=== PATIENT | male | born 1945 | race Caucasian/White ===

== ENCOUNTER 2018-06-23 12:12 | Outpatient (CLI) | payer MEDICARE ==
--- NOTE | 2018-06-23 15:53 | NM ---
EXAM: Nuclear medicine hepatobiliary scan: HISTORY: Generalized abdominal pain, gastroesophageal reflux disease, right upper quadrant pain COMPARISON: None. RADIOPHARMACEUTICAL: 5.2 mCi technetium 99m labeled mebrofenin intravenously. FINDINGS: There is normal opacification of the liver with excretion into the gallbladder and into the small bow el by 60 minutes. Following administration of: 8 ounces of ensure orally, gallbladder ejection fraction %, with in normal limits.. IMPRESSION: Unremarkable nuclear medicine hepatic biliary scan. Normal ejection fraction.
== END 2018-06-23 12:13 | disposition home or self-care (01) ==
LOC: NM 12:12
PROVIDERS: ATTEND Internal Medicine Gastroenterology
DX: K21.9 Gastro-esophageal reflux disease without esophagitis (principal); R10.84 Generalized abdominal pain
CPT/HCPCS: 78227; A9537

== ENCOUNTER 2021-11-27 11:45 | Emergency (ER) | payer MEDICARE, SELFPAY ==
[~2021-11-27 11:45] MED LIST: Iopamidol-370 76% 500 ML 1 ML ONE
[2021-11-27 12:28] LABS: Hemoglobin 15.8 g/dL (14.0-18.0); Mean Corpuscular HGB CONC 33.7 g/dL (32.0-36.0); Mean Corpuscular Hemoglobin 30.1 pg (27.0-31.0); Mean Corpuscular Volume 89.2 fL (78.0-98.0); Mean Platelet Volume 6.8 fL (7.4-10.4); Platelet Count 224 thou/uL (130-400); RBC Distribution Width 12.6 % (11.5-14.5); Red Blood Cell (RBC) Count 5.25 mill/uL (4.70-6.10); White Blood Cell (WBC) Count 10.6 thou/uL (4.8-10.8)
[2021-11-27 12:51] LABS: ALT (SGPT) 21 U/L (8-55); AST (SGOT) 22 U/L (5-34); Albumin 4.6 g/dL (3.4-4.8); Alkaline Phosphatase 84 U/L (40-110); Anion Gap 14 mmol/L (10-20); BUN (Urea Nitrogen) 15 mg/dL (8.4-25.7); Bilirubin, Total 0.8 mg/dL (0.2-1.2); Calc. Creatinine Clearance 0 mL/min (70-130); Calcium 10.8 mg/dL (7.8-10.44); Carbon Dioxide 25 mmol/L (23-31); Chloride 106 mmol/L (98-107); Estimated GFR 64; Globulin 2.9 g/dL (2.4-3.5); Glucose 98 mg/dL (83-110); Protein, Total 7.5 g/dL (5.8-8.1); Sodium 141 mmol/L (136-145)
[2021-11-27 12:53] LABS: Eosinophils 2 % (0-10); Lymphocytes 56 % (21-51); MDiff Complete? YES; Monocytes 4 % (0-10); Neutrophil 36 % (42-75); Platelet Morphology Comment Appears Adequate; RBC Morphology Normal; Reactive Lymphocytes 2 % (0-10)
[2021-11-27 13:19] LABS: CK (CPK) 219 U/L (30-200); Lipase 46 U/L (8-78)
[2021-11-27] MEDS ORDERED: Lidocaine Viscous Sol 2% 15 ml UD Cup ONE (15:35)
[2021-11-27] MEDS ORDERED: Mag-Al 1200 mg/1200 mg/30 ML UDCUP ONE (15:35)
== END 2021-11-27 15:40 | disposition home or self-care (01) ==
LOC: ERS 11:45
DX: R07.89 Other chest pain (principal); E78.00 Pure hypercholesterolemia, unspecified
CPT/HCPCS: 71045; 71275; 76705; 80053; 82550; 83690; 84484; 85025; 93005; Q9967

== ENCOUNTER 2021-12-29 08:23 | Outpatient (CLI) | payer MEDICARE | END 2021-12-29 08:24 | disposition home or self-care (01) | LOC: RAD 08:23 | PROVIDERS: ATTEND Internal Medicine Critical Care Medicine | DX: R06.00 Dyspnea, unspecified (principal) | CPT/HCPCS: 71046 ==

== ENCOUNTER 2022-01-18 08:07 | Outpatient (CLI) | payer MEDICARE | END 2022-01-18 08:08 | disposition home or self-care (01) | LOC: NM 08:07 | PROVIDERS: ATTEND Internal Medicine Critical Care Medicine | DX: R07.89 Other chest pain (principal) | CPT/HCPCS: 78306; A9503 ==

== ENCOUNTER 2022-03-24 15:54 | Inpatient (IN) | payer MEDICARE ==
[2022-03-24] MEDS ORDERED: Boostrix 0.5 ML (Tdap) VIAL (>/=7 yrs of age) ONE (16:24)
[2022-03-24] MEDS ORDERED: Fentanyl 100 MCG/2 ML VIAL ONE ×2 (16:24→22:07)
[2022-03-24] MEDS ORDERED: Morphine 4 MG/ML VIAL ONE (17:23)
[2022-03-24] MEDS ORDERED: CEFAZOLIN 1 GM VIAL ONE (17:23)
[2022-03-24] MEDS ORDERED: Ondansetron PF 4 MG/2 ML Vial ONE ×2 (17:23→20:06)
[2022-03-24] MEDS ORDERED: Lidocaine 1% PF 5 ML VIAL ONE ×2 (18:25→20:42)
[2022-03-24] MEDS ORDERED: Bupivacaine 0.25% 10 ML VIAL ONE (18:25)
[2022-03-24] MEDS ORDERED: Piperacillin/Tazobactam 4.5 GM VIAL ONE (18:55)
[2022-03-24] MEDS ORDERED: Ketorolac Tromethamine 30 MG/ML VIAL ONE (18:55)
[2022-03-24] MEDS ORDERED: Ketamine 50 MG/ML (10ML VIAL) ONE (19:02)
[2022-03-24] MEDS ORDERED: Famotidine/PF 20 mg/2ml Vial ONE (19:44)
[2022-03-24] MEDS ORDERED: Morphine 2 MG/ML VIAL SLOW IVP PRN (20:14)
[2022-03-24] MEDS ORDERED: TETANUS, DIPHTHERIA TOX,ADULT (TDVAX) 0.5 ML VIAL IM ONE (20:14)
[2022-03-24] MEDS ORDERED: Dextrose 50% Abboject 50 ML SYRINGE SLOW IVP PRN (20:14)
[2022-03-24] MEDS ORDERED: hydrALAZINE 20 MG/ML VIAL SLOW IVP PRN (20:14)
[2022-03-24] MEDS ORDERED: Ipratropium/Albuterol 3 ML NEB NEB PRN (20:14)
[2022-03-24] MEDS ORDERED: Ondansetron ODT 4 MG TAB PO PRN (20:14)
[2022-03-24] MEDS ORDERED: Dextrose 5% in Water 1,000 ML IV PRN (20:14)
[2022-03-24] MEDS ORDERED: Morphine 4 MG/ML VIAL SLOW IVP PRN (20:14)
[2022-03-24] MEDS ORDERED: Sodium Chloride 0.9% 1,000 ML IV SCH (20:15)
[2022-03-24] MEDS ORDERED: traMADol HCl 50 MG TAB PO PRN (20:16)
[2022-03-24] MEDS ORDERED: Cyclobenzaprine 10 MG TAB PO PRN (20:16)
[2022-03-24 20:30] LABS: Mean Corpuscular HGB CONC 34.4 g/dL (32.0-36.0); Mean Corpuscular Hemoglobin 30.2 pg (27.0-31.0); Mean Corpuscular Volume 87.8 fl (78.0-98.0); Mean Platelet Volume 7.2 fL (7.4-10.4); Platelet Count 189 10x3/uL (130-400); RBC Distribution Width 12.1 % (11.5-14.5); Red Blood Cell (RBC) Count 4.96 mill/uL (4.70-6.10); White Blood Cell (WBC) Count 9.8 10x3/uL (4.8-10.8)
[2022-03-24 20:38] LABS: Prothrombin Time 13.2 sec (12.0-14.7)
[2022-03-24 20:39] LABS: SARS-CoV-2 NAA Rapid Test Not Detected (NotDetected)
[2022-03-24] MEDS ORDERED: ePHEDrine 50 MG/ML VIAL ONE (20:42)
[2022-03-24] MEDS ORDERED: Succinylcholine Chloride 100 MG/5 ML SYRINGE FS ONE (20:42)
[2022-03-24 20:46] LABS: ALT (SGPT) 19 U/L (8-55); AST (SGOT) 22 U/L (5-34); Albumin 4.2 g/dL (3.4-4.8); Alkaline Phosphatase 68 U/L (40-110); Anion Gap 13 mmol/L (10-20); BUN (Urea Nitrogen) 17 mg/dL (8.4-25.7); Bilirubin, Total 0.5 mg/dL (0.2-1.2); Calc. Creatinine Clearance 0 mL/min (70-130); Calcium 9.9 mg/dL (7.8-10.44); Carbon Dioxide 22 mmol/L (23-31); Chloride 108 mmol/L (98-107); Estimated GFR 75; Globulin 2.6 g/dL (2.4-3.5); Glucose 129 mg/dL (83-110); Potassium 3.9 mmol/L (3.5-5.1); Protein, Total 6.8 g/dL (5.8-8.1); Sodium 139 mmol/L (136-145)
[2022-03-24 20:49] LABS: Band 1 % (5-11); Lymphocytes 37 % (21-51); MDiff Complete? YES; Neutrophil 55 % (42-75); Platelet Morphology Comment Appears Adequate; RBC Morphology Normal; Reactive Lymphocytes 7 % (0-10)
[2022-03-24] MEDS: Senokot S 8.6-50 MG TAB PO SCH (21:00)
[2022-03-24] MEDS: Famotidine 20 MG TAB PO SCH (21:00)
[2022-03-24] MEDS ORDERED: Bacitracin Zinc Ointment 30 gm TUBE ONE (21:23)
[2022-03-24] MEDS ORDERED: Promethazine HCl 25 MG/ML VIAL IM PRN (21:40)
[2022-03-24] MEDS ORDERED: Ondansetron HCl/PF 4 MG/2 ML Vial IVP PRN (21:40)
[2022-03-24] MEDS ORDERED: Ibuprofen 200 MG TAB PO PRN (21:44)
[2022-03-24] MEDS: Gabapentin 100 MG CAP PO SCH (22:00)
[2022-03-25] MEDS: CEFAZOLIN 2 GM in Sodium Chloride 0.9% 100 ML IVPB SCH ×2 (00:05→07:56)
[2022-03-25] MEDS: Ondansetron PF 4 MG/2 ML Vial IVP PRN ×2 (00:06→09:27)
[2022-03-25] MEDS: Acetaminophen 325 MG TAB PO SCH ×3 (00:26→13:06)
[2022-03-25 03:48] VITALS: BMI 27.6
[2022-03-25] MEDS: traMADol HCl 50 MG TAB PO SCH ×2 (03:50→07:56)
[2022-03-25] MEDS: Gabapentin 100 MG CAP PO SCH (05:15)
[2022-03-25 06:01] LABS: #Basophils 0.1 thou/uL (0.0-0.2); #Eosinphils 0.1 thou/uL (0.0-0.7); #Lymphocytes 3.6 thou/uL (1.20-3.40); #Monocytes 0.7 thou/uL (0.11-0.59); %Basophils 0.5 % (0.0-1.0); %Eosinophils 0.6 % (0.0-10.0); %Lymphocytes 34.9 % (21.0-51.0); %Monocytes 6.6 % (0.0-10.0); %Neutrophils 57.4 % (42.0-75.0); Hemoglobin 13.3 g/dL (14.0-18.0); Mean Corpuscular HGB CONC 33.7 g/dL (32.0-36.0); Mean Corpuscular Hemoglobin 30.2 pg (27.0-31.0); Mean Corpuscular Volume 89.6 fl (78.0-98.0); Mean Platelet Volume 7.2 fL (7.4-10.4); Platelet Count 166 10x3/uL (130-400); RBC Distribution Width 12.2 % (11.5-14.5); White Blood Cell (WBC) Count 10.4 10x3/uL (4.8-10.8)
[2022-03-25 06:25] LABS: Anion Gap 10 mmol/L (10-20); BUN (Urea Nitrogen) 16 mg/dL (8.4-25.7); Calc. Creatinine Clearance 90 mL/min (70-130); Calcium 9.1 mg/dL (7.8-10.44); Carbon Dioxide 25 mmol/L (23-31); Chloride 108 mmol/L (98-107); Estimated GFR 87; Glucose 101 mg/dL (83-110); Magnesium 2.1 mg/dL (1.6-2.6); Potassium 4.3 mmol/L (3.5-5.1); Sodium 139 mmol/L (136-145)
[2022-03-25] MEDS ORDERED: PHOS-NAK 1 PKT PACK PO SCH (07:45)
[2022-03-25] MEDS: Famotidine 20 MG TAB PO SCH (07:56)
[2022-03-25] MEDS: Senokot S 8.6-50 MG TAB PO SCH (07:57)
[2022-03-25] MEDS ORDERED: Polyethylene Glycol 3350 17 GM Packet PO SCH (09:00)
[2022-03-25] MEDS ORDERED: Cephalexin 250 MG CAP PO SCH ×2 (12:00)
[2022-03-25 12:27] VITALS: BP 122/61; TEMP 98.1
[2022-03-25] MEDS ORDERED: Gabapentin 300 MG CAP PO SCH (14:00)
== END 2022-03-25 13:57 | disposition home or self-care (01) | DRG 501 ==
LOC: ERS 15:54 → SURG A 19:37
PROVIDERS: ADMIT Surgery; ATTEND Surgery
PROC: 0LQV0ZZ Repair Right Foot Tendon, Open Approach (ICD-10-PCS; principal; 2022-03-24)
PROC: 0YQPXZZ Repair Right 1st Toe, External Approach (ICD-10-PCS; 2022-03-24)
PROC: 0YQTXZZ Repair Right 3rd Toe, External Approach (ICD-10-PCS; 2022-03-24)
PROC: 0YQ Anatomical Regions, Lower Extremities, Repair (ICD-10-PCS; 2022-03-24)
DX: S92.424A Nondisplaced fracture of distal phalanx of right great toe, initial encounter for closed fracture (principal); S92.911A Unspecified fracture of right toe(s), initial encounter for closed fracture; S96.921A Laceration of unspecified muscle and tendon at ankle and foot level, right foot, initial encounter; Z20.822 Contact with and (suspected) exposure to COVID-19; E78.5 Hyperlipidemia, unspecified; W31.89XA Contact with other specified machinery, initial encounter; Z90.49 Acquired absence of other specified parts of digestive tract
CPT/HCPCS: 36415; 80048; 80053; 83735; 84100; 85025; 85610; 85730; 90715; J0690; J1885; J2270; J2405; J2543; J3010; J3490; J7050; S0020; S0028; U0002

== ENCOUNTER 2022-03-30 20:22 | Inpatient (IN) | payer MEDICARE ==
[2022-03-30] MEDS ORDERED: Piperacillin/Tazobactam 3.375 GM VIAL ONE (20:47)
[2022-03-30] MEDS ORDERED: Acetaminophen 500 MG TAB ONE (20:47)
[2022-03-30 21:11] LABS: #Eosinphils 0.1 thou/uL (0.0-0.7); #Monocytes 0.5 thou/uL (0.11-0.59); #Neutrophils 7.5 thou/uL (1.40-6.50); %Basophils 0.3 % (0.0-1.0); %Monocytes 4.7 % (0.0-10.0); %Neutrophils 66.9 % (42.0-75.0); Mean Corpuscular HGB CONC 34.7 g/dL (32.0-36.0); Mean Corpuscular Hemoglobin 30.4 pg (27.0-31.0); Mean Corpuscular Volume 87.6 fl (78.0-98.0); Mean Platelet Volume 6.6 fL (7.4-10.4); Platelet Count 178 10x3/uL (130-400); RBC Distribution Width 11.7 % (11.5-14.5); White Blood Cell (WBC) Count 11.2 10x3/uL (4.8-10.8)
[2022-03-30 21:36] LABS: ALT (SGPT) 11 U/L (8-55); AST (SGOT) 19 U/L (5-34); Albumin 3.8 g/dL (3.4-4.8); Alkaline Phosphatase 79 U/L (40-110); Anion Gap 14 mmol/L (10-20); BUN (Urea Nitrogen) 13 mg/dL (8.4-25.7); Bilirubin, Total 0.5 mg/dL (0.2-1.2); Calc. Creatinine Clearance 0 mL/min (70-130); Calcium 10.1 mg/dL (7.8-10.44); Carbon Dioxide 24 mmol/L (23-31); Chloride 99 mmol/L (98-107); Estimated GFR 90; Globulin 2.7 g/dL (2.4-3.5); Glucose 110 mg/dL (83-110); Potassium 4.2 mmol/L (3.5-5.1); Protein, Total 6.5 g/dL (5.8-8.1); Sodium 133 mmol/L (136-145)
[2022-03-30 21:42] LABS: Bilirubin Negative (Negative); Blood, Urine Negative (Negative); Clarity Turbid (Clear); Glucose, Urine (Dipstick) Normal (Negative); Ketone, Urine Negative (Negative); Leukocyte Negative Leu/uL (Negative); Nitrite Negative (Negative); Protein, Urine (Dipstick) Negative (Neg-Trace); Specific Gravity, Urine 1.012 (1.002-1.036); Urobilinogen Normal mg/dL (Less than 2)
[2022-03-30] MEDS ORDERED: Ondansetron PF 4 MG/2 ML Vial IVP PRN (22:52)
[2022-03-30] MEDS ORDERED: Acetaminophen 325 MG TAB PO PRN (22:52)
[2022-03-30] MEDS ORDERED: Ondansetron ODT 4 MG TAB PO PRN (22:52)
[2022-03-30] MEDS ORDERED: Acetaminophen 650 MG Suppository PR PRN (22:52)
[2022-03-30] MEDS ORDERED: Vancomycin 1 GM/200 ML (FROZEN) BAG ONE (22:55)
[2022-03-30] MEDS ORDERED: Gabapentin 300 MG CAP PO SCH (23:15)
[2022-03-30 23:18] VITALS: BMI 27.1
[2022-03-31 00:17] LABS: Lactic Acid 1.3 mmol/L (0.5-2.2)
[2022-03-31] MEDS: Sodium Chloride 0.9% 1,000 ML IV SCH ×3 (00:17→20:35)
[2022-03-31] MEDS ORDERED: Vancomycin 1 GM in Premix Bag 1 BAG IVPB SCH (00:45)
[2022-03-31] MEDS: Piperacillin/Tazobactam 3.375 GM in Sodium Chloride 0.9% 100 ML IVPB SCH ×3 (01:08→17:32)
[2022-03-31] MEDS: Gabapentin 300 MG CAP PO SCH ×3 (05:51→20:34)
[2022-03-31] MEDS ORDERED: VANCOMYCIN 1.25 GM/250 ML BAG 1.25 GM in Premix Bag 1 BAG IVPB SCH (08:00)
[2022-03-31] MEDS: traMADol HCl 50 MG TAB PO PRN ×3 (09:06→20:34)
[2022-03-31 10:26] LABS: #Basophils 0.1 thou/uL (0.0-0.2); #Eosinphils 0.3 thou/uL (0.0-0.7); #Lymphocytes 3.4 thou/uL (1.20-3.40); #Monocytes 0.5 thou/uL (0.11-0.59); #Neutrophils 5.8 thou/uL (1.40-6.50); %Basophils 0.7 % (0.0-1.0); %Eosinophils 2.7 % (0.0-10.0); %Lymphocytes 33.8 % (21.0-51.0); %Monocytes 4.7 % (0.0-10.0); %Neutrophils 58.1 % (42.0-75.0); Hemoglobin 13.8 g/dL (14.0-18.0); Mean Corpuscular HGB CONC 33.1 g/dL (32.0-36.0); Mean Corpuscular Hemoglobin 29.8 pg (27.0-31.0); Mean Corpuscular Volume 90.1 fl (78.0-98.0); Mean Platelet Volume 6.5 fL (7.4-10.4); Platelet Count 196 10x3/uL (130-400); RBC Distribution Width 11.9 % (11.5-14.5); Red Blood Cell (RBC) Count 4.63 mill/uL (4.70-6.10)
[2022-03-31 10:35] LABS: Anion Gap 12 mmol/L (10-20); BUN (Urea Nitrogen) 11 mg/dL (8.4-25.7); Calc. Creatinine Clearance 95 mL/min (70-130); Calcium 9.7 mg/dL (7.8-10.44); Carbon Dioxide 22 mmol/L (23-31); Chloride 107 mmol/L (98-107); Estimated GFR 90; Glucose 91 mg/dL (83-110); Potassium 3.8 mmol/L (3.5-5.1); Sodium 137 mmol/L (136-145)
[2022-03-31] MEDS: VANCOMYCIN 1.25 GM/250 ML BAG 1.25 GM in Premix Bag 1 BAG IVPB SCH (13:31)
[2022-03-31] MEDS: Docusate 100 MG CAP PO SCH (20:34)
[2022-04-01] MEDS: VANCOMYCIN 1.25 GM/250 ML BAG 1.25 GM in Premix Bag 1 BAG IVPB SCH ×2 (00:10→13:26)
[2022-04-01] MEDS: Piperacillin/Tazobactam 3.375 GM in Sodium Chloride 0.9% 100 ML IVPB SCH ×2 (02:12→09:03)
[2022-04-01] MEDS: Gabapentin 300 MG CAP PO SCH ×2 (05:35→13:32)
[2022-04-01 08:03] VITALS: TEMP 98.5
[2022-04-01] MEDS ORDERED: Saccharomyces boulardii 250 MG CAP PO SCH (09:00)
[2022-04-01] MEDS: Docusate 100 MG CAP PO SCH (09:03)
[2022-04-01 12:36] LABS: Vancomycin, Trough 12.8 ug/mL
[2022-04-01] MEDS ORDERED: Vancomycin 1.5 GRAM/300 ML BAG 1.5 GM in Premix Bag 1 BAG IVPB SCH (13:00)
[2022-04-01 16:09] VITALS: BP 135/75
== END 2022-04-01 16:10 | disposition home or self-care (01) | DRG 862 ==
LOC: ERS 20:22 → T4-B 21:39 → ERHOLD 21:53 → T4-B 03-31 00:45 → OBSVTOIN 03-31 14:45
PROVIDERS: ADMIT Student in an Organized Health Care Education/Training Program; ATTEND Internal Medicine
DX: T81.49XA Infection following a procedure, other surgical site, initial encounter (principal); A41.9 Sepsis, unspecified organism; R65.20 Severe sepsis without septic shock; G93.41 Metabolic encephalopathy; L03.115 Cellulitis of right lower limb; E87.1 Hypo-osmolality and hyponatremia; E78.5 Hyperlipidemia, unspecified; H81.09 Meniere's disease, unspecified ear; N18.2 Chronic kidney disease, stage 2 (mild); D63.1 Anemia in chronic kidney disease; I12.9 Hypertensive chronic kidney disease with stage 1 through stage 4 chronic kidney disease, or unspecified chronic kidney disease; Z20.822 Contact with and (suspected) exposure to COVID-19; E86.0 Dehydration; Z88.5 Allergy status to narcotic agent; Z79.899 Other long term (current) drug therapy; Z90.49 Acquired absence of other specified parts of digestive tract; Z98.890 Other specified postprocedural states
CPT/HCPCS: 36415; 36416; 71045; 80048; 80053; 80202; 81003; 83605; 83880; 84484; 85025; 87040; 87086; 93005; 96372; 96376; 97139; G0378; J1650; J2543; J3370; J3370-JW; J3490; J7050; U0003; U0005